=== PATIENT | male | born 1955 | race Caucasian/White ===

== ENCOUNTER 2016-05-16 08:28 | Day surgery (SDC) | payer OTHER ==
[~2016-05-16] VITALS: Ht 185.4 cm; Wt 105.2 kg
== END 2016-05-16 13:24 | disposition home or self-care (01) ==
LOC: RAD.S 08:28 → EDSTATUS 10:00 → RAD.S 10:00
PROC: 0TB13ZX Excision of Left Kidney, Percutaneous Approach, Diagnostic (ICD-10-PCS; principal; 2016-05-16)
DX: N17.0 Acute kidney failure with tubular necrosis (principal); I10 Essential (primary) hypertension; Z79.899 Other long term (current) drug therapy

== ENCOUNTER → 2016-05-23 | Outpatient (CLI) | payer OTHER | END | disposition home or self-care (01) | LOC: RAD.S 15:02 | DX: I10 Essential (primary) hypertension (principal); M47.812 Spondylosis without myelopathy or radiculopathy, cervical region; M47.814 Spondylosis without myelopathy or radiculopathy, thoracic region; M47.816 Spondylosis without myelopathy or radiculopathy, lumbar region ==